=== PATIENT | male | born 1950 | race Caucasian/White ===

== ENCOUNTER → 2018-02-16 07:10 | Outpatient (CLI) | payer BC, SELFPAY ==
[2018-02-16 08:51] LABS: PSA,Total- Diagnostic 4.28 ng/mL (0.0-4.0)
== END ==
PROVIDERS: Family Provider Family Medicine; PCP Family Medicine; Visit Provider Urology
DX: R97.20 Elevated prostate specific antigen [PSA] (principal)
CPT/HCPCS: 36415; 84153

== ENCOUNTER → 2019-09-19 09:18 | Outpatient (CLI) | payer BC, SELFPAY ==
[2019-06-10 10:54] VITALS: BMI 26.3
[2019-09-19 10:10] LABS: PSA,Total- Diagnostic 4.98 ng/mL (0.0-4.0)
== END ==
PROVIDERS: Family Provider Family Medicine; PCP Family Medicine; Referring Provider Urology; Visit Provider Urology
DX: N40.1 Benign prostatic hyperplasia with lower urinary tract symptoms (principal)
CPT/HCPCS: 36415; 84153